=== PATIENT | male | born 1990 | race African-American/Black ===

== ENCOUNTER 2019-12-28 17:54 | Emergency (ER) | payer BC ==
[~2019-12-28] VITALS: Ht 177.8 cm; Wt 72.6 kg
[2019-12-28 17:56] VITALS: BP 152/93
[2019-12-28] MEDS ORDERED: AUGMENTIN 875-1 EACH PO (18:01)
[2019-12-28] MEDS ORDERED: ZANAFLEX2 M1 PO (18:02)
[2019-12-28] MEDS ORDERED: COZAAR 25 MG TA25 M1 PO (19:24)
[2019-12-28] MEDS ORDERED: PROMETH-CODEIN 65 ML PO (19:24)
[2019-12-28] MEDS ORDERED: PROAIR HFA8.5 GM INH (19:37)
[2019-12-28] MEDS ORDERED: BUTALB-APAP-CA1 EACH PO (19:37)
== END 2019-12-28 19:50 | disposition home or self-care (01) ==
LOC: ER 17:54
DX: I10 Essential (primary) hypertension (principal); R05 Cough; R50.9 Fever, unspecified; M79.10 Myalgia, unspecified site; K21.9 Gastro-esophageal reflux disease without esophagitis; F41.9 Anxiety disorder, unspecified

== ENCOUNTER 2020-01-07 15:42 | Emergency (ER) | payer BC ==
[~2020-01-07] VITALS: Ht 177.8 cm; Wt 72.6 kg
[~2020-01-07 15:42] MED LIST: AUGMENTIN 875-1 EACH PO; BUTALB-APAP-CA1 EACH PO; COZAAR 25 MG TA25 M1 PO; PROAIR HFA8.5 GM INH; PROMETH-CODEIN 65 ML PO; ZANAFLEX2 M1 PO
[2020-01-07 18:07] VITALS: BP 127/85
== END 2020-01-07 18:07 | disposition home or self-care (01) ==
LOC: ER 15:42
DX: R51 Headache (principal); K21.9 Gastro-esophageal reflux disease without esophagitis; F41.9 Anxiety disorder, unspecified

== ENCOUNTER 2020-01-11 22:33 | Emergency (ER) | payer BC ==
[~2020-01-11] VITALS: Ht 182.9 cm; Wt 61.2 kg
[2020-01-11] MEDS ORDERED: BUTALB-ACETAMI1 EACH PO (22:41)
[2020-01-11] MEDS ORDERED: BENZONATATE200 MG PO (22:42)
[2020-01-11] MEDS ORDERED: PROMETHAZINE-C473 ML PO (22:42)
[2020-01-11 22:59] LABS: HEMATOCRIT 43.2 % (42.0-52.0); HEMOGLOBIN 14.2 gm/dL (14.0-18.0); MCH 30.1 pg (26.0-34.0); MCHC 32.8 g/dL (28.0-37.0); MCV 91.9 fL (80.0-100.0); RBC 4.7 mil/uL (4.50-6.00); RDW 11.6 % (10.5-14.5); WBC 10.1 thou/uL (4.0-11.0)
[2020-01-11 23:14] LABS: CALCIUM 8.3 mg/dL (8.5-10.1); CREATININE 1.2 mg/dL (0.7-1.3); POTASSIUM 3.8 mmol/L (3.5-5.1)
[2020-01-12] MEDS ORDERED: BUTALB-APAP-CA1 EACH PO (01:13)
[2020-01-12 01:24] VITALS: BP 119/72
== END 2020-01-12 01:20 | disposition home or self-care (01) ==
LOC: ER 22:33
PROVIDERS: Emergency Medicine Emergency Medical Services
DX: G43.909 Migraine, unspecified, not intractable, without status migrainosus (principal); K21.9 Gastro-esophageal reflux disease without esophagitis

== ENCOUNTER 2020-01-13 19:10 | Emergency (ER) | payer BC ==
[~2020-01-13] VITALS: Ht 177.8 cm; Wt 72.6 kg
[~2020-01-13 19:10] MED LIST changes: +BENZONATATE200 MG PO; +BUTALB-ACETAMI1 EACH PO; +PROMETHAZINE-C473 ML PO
[2020-01-13 21:36] VITALS: BP 127/80
== END 2020-01-13 21:38 | disposition home or self-care (01) ==
LOC: ER 19:10
DX: G43.909 Migraine, unspecified, not intractable, without status migrainosus (principal); K21.9 Gastro-esophageal reflux disease without esophagitis

== ENCOUNTER 2020-01-16 06:04 | Emergency (ER) | payer BC ==
[~2020-01-16] VITALS: Ht 177.8 cm; Wt 72.6 kg
[2020-01-16] MEDS ORDERED: INDERAL LA120 M1 PO (06:12)
[2020-01-16 09:58] LABS: URINE BILIRUBIN NEGATIVE (Negative); URINE BLOOD NEGATIVE (Negative); URINE CLARITY CLEAR; URINE COLOR YELLOW; URINE GLUCOSE-RANDOM* NEGATIVE (Negative); URINE KETONES NEGATIVE (Negative); URINE LEUKOCYTES-REFLEX NEGATIVE (Negative); URINE NITRITE-REFLEX NEGATIVE (Negative); URINE PROTEIN (DIPSTICK) NEGATIVE (Negative); URINE UROBILINOGEN 0.2 E.U./dl (0.2-1.0)
[2020-01-16] MEDS ORDERED: DEPAKOTE ER500 M1 PO (11:56)
[2020-01-16 12:52] VITALS: BP 124/82
== END 2020-01-16 12:52 | disposition home or self-care (01) ==
LOC: ER 06:04
PROVIDERS: Emergency Medicine
DX: R51 Headache (principal); K21.9 Gastro-esophageal reflux disease without esophagitis; Z88.8 Allergy status to other drugs, medicaments and biological substances; F41.9 Anxiety disorder, unspecified